=== PATIENT | male | born 1960 | race Caucasian/White ===

== ENCOUNTER 2017-11-01 23:53 | Inpatient (IN) | payer SELFPAY ==
[2017-11-02 02:38] LABS: Troponin I 0.022 ng/mL (< 0.028)
--- NOTE | 2017-11-02 02:52 | PDOC.FPRHP ---
- History of Present Illness Chief Complaint: Syncope History of Present Illness: This is a 57 y/o M with a PMHx of CAD s/p 30 stents and 3v CABG, DM2, who presents to the ED as a transfer from the ED in [place] due to hypoglycemia. The patient reports that he had an episode of syncope this AM and EMS was called and he was found to have a low glucose to 24. He was given an amp of D50 at the time. He then was encouraged by them to eat. Then later that morning he had a second syncopal episode where EMS was called again. They gave him D50 again, but this time took him to the ED. The patient reports that he has had dizziness all day today, which he has never had before. He reports that his blood sugars normally run between 187-300, but since he had an DC in August of this past year he hasn't had as good of an appetite, so he has cut back on the amount of insulin he gives himself, so instead of giving himself 50 units twice a day, he only gives it once a day. The patient reported to me that he only gave himself his insulin once today, however, he informed his nurse that he gave himself the insulin twice today. The patient also reports an episode of chest pain that lasted about 10 minutes and was relieved by nitro. It was in the left side of his chest. The patient reports that he gets episodes of chest pain pretty much every day, and he reports that this was similar, and they have not increased in intensity or changed in any way. He does not have any residual chest pain. 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 ED Course: The patient was seen in the ED in [place] and was given Lasix 40mg, D50 x2 , Aspirin 325mg. - Allergies/Adverse Reactions Allergies Allergy/AdvReac Type Severity Reaction Status Date / Time No Known Drug Allergies Allergy Verified 11/02/17 03:33 - Home Medications Medication Instructions Recorded Confirmed Type Amiodarone [Cordarone] 200 mg PO BID 11/02/17 11/02/17 History Apixaban [Eliquis] 2.5 mg PO DAILY 11/02/17 History Carvedilol Phosphate [Coreg CR] 20 mg PO DAILY 11/02/17 11/02/17 History DULoxetine HCl [Cymbalta] 60 mg PO DAILY 11/02/17 11/02/17 History Digoxin [Digox] 125 mcg PO DAILY 11/02/17 11/02/17 History Fenofibrate Nanocrystallized 145 mg PO DAILY 11/02/17 11/02/17 History [Fenofibrate] Furosemide 40 mg PO DAILY 11/02/17 11/02/17 History Insulin Aspart [NovoLOG] 50 unit SQ BID-WM 11/02/17 11/02/17 History Nitroglycerin [Nitro-Dur 0.6mg/Hr 0.6 mg TD DAILY 11/02/17 11/02/17 History Patch] Nitroglycerin [Nitrostat] 0.4 mg SL Q5MIN PRN 11/02/17 11/02/17 History Prasugrel [Effient] 10 mg PO DAILY 11/02/17 11/02/17 History Sotalol HCl [Sotalol] 80 mg PO DAILY 11/02/17 11/02/17 History Tamsulosin HCl 0.4 mg PO DAILY 11/02/17 11/02/17 History traMADol HCl [Ultram] 50 mg PO DAILY 11/02/17 11/02/17 History - History PMHx: 1. CAD s/p stents x30 and 3v CABG 2. DM2 3. HLD 4. Asthma 5. CHF 6. a-fib s/p cardioversion in 08/2017 PSHx: 1. CABG 2. Cardiac stents 3. Multiple L shoulder surgeries due to staph infection 4. Tonsillectomy FHx: Dad and brother - CAD Social: , denies EtOH, smoking, or drug use. - Review of Systems General: reports: fatigue (worsened fatigue since his DC in August). denies: fever/chills Eyes: denies: vision changes ENT: denies: nasal congestion, rhinorrhea Respiratory: denies: cough, shortness of breath Cardiovascular: reports: chest pain (almost daily chest pain that is relieved with nitro, has not worsened or changed lately). denies: edema Gastrointestinal: denies: nausea, vomiting, diarrhea, constipation, abdominal pain Genitourinary: denies: dysuria, polyuria Skin: denies: rashes, lesions Musculoskeletal: denies: pain, tenderness Neurological: reports: syncope (two episodes of syncope as described in the HPI) . denies: numbness - Vital signs BP: 102/57 HR: 48 RR: 18 Tmax: 98.2 Pox: 94% on RA Wt: 104.3kg - Physical Exam Constitutional: NAD, awake, alert and oriented, well developed HEENT: normocephalic and atraumatic, PERRLA, EOMI, conjunctiva clear, grossly normal vision, normal nasal mucosa, MMM, oropharynx clear Neck: supple, FROM, no LAD -Heart: bradycardic, 3/6 systolic murmur, irregular rhythm, trace pitting edema in bilateral lower extremities Lungs: CTAB, no respiratory distress, good air movement, no rales/rhonchi, no wheezing Abdomen: soft, non-tender, bowel sounds present, no masses/distention Musculoskeletal: normal structure, normal tone Neurological: no focal deficit, CN II-XII intact Skin: good turgor, capillary refill <2 seconds Psychiatric: normal mood and affect, good judgment and insight, intact recent and remote memory FMR H&P: Results - Labs Lab results: Laboratory Tests 11/01/17 11/01/17 11/01/17 20:59 21:18 21:27 WBC Hgb Hct MCV Plt Count Sodium 140 Potassium 4.6 Chloride 102 Carbon Dioxide 24 BUN 58 H Creatinine 1.95 H Estimated GFR (MDRD) 35 Glucose 174 H POC Glucose 94 64 L Troponin I B-Natriuretic Peptide 11/01/17 11/01/17 11/01/17 21:27 21:27 21:27 WBC 9.0 Hgb 10.8 L Hct 34.4 L MCV 93.0 Plt Count 203 Sodium Potassium Chloride Carbon Dioxide BUN Creatinine Estimated GFR (MDRD) Glucose POC Glucose Troponin I 0.040 H B-Natriuretic Peptide 2674.0 H - EKG Interpretation EKG: No P waves, rate of 48, some paced beats, junctional rhythm - Radiology Interpretation Chest x-ray Status: image reviewed by me Additional comment: Official radiology read pending: cardiomegaly, some pulmonary vascular congestion, no acute process FMR H&P: A/P - Problem List (1) Syncope Current Visit: Yes Status: Acute Code(s): R55 - SYNCOPE AND COLLAPSE Qualifiers: Syncope type: unspecified Qualified Code(s): R55 - Syncope and collapse (2) Symptomatic bradycardia Current Visit: Yes Status: Acute Code(s): R00.1 - BRADYCARDIA, UNSPECIFIED (3) Hypoglycemia Current Visit: Yes Status: Acute Code(s): E16.2 - HYPOGLYCEMIA, UNSPECIFIED (4) Stable angina Current Visit: Yes Status: Acute Code(s): I20.8 - OTHER FORMS OF ANGINA PECTORIS (5) JORDON (acute kidney injury) Current Visit: Yes Status: Acute Code(s): N17.9 - ACUTE KIDNEY FAILURE, UNSPECIFIED (6) Normocytic anemia Current Visit: Yes Status: Acute Code(s): D64.9 - ANEMIA, UNSPECIFIED (7) HLD (hyperlipidemia) Current Visit: Yes Status: Acute Code(s): E78.5 - HYPERLIPIDEMIA, UNSPECIFIED Qualifiers: Hyperlipidemia type: unspecified Qualified Code(s): E78.5 - Hyperlipidemia , unspecified (8) Diabetes mellitus type 2 in obese Current Visit: Yes Status: Acute Code(s): E11.69 - TYPE 2 DIABETES MELLITUS WITH OTHER SPECIFIED COMPLICATION; E66.9 - OBESITY, UNSPECIFIED (9) CAD (coronary artery disease) Current Visit: Yes Status: Acute Code(s): I25.10 - ATHSCL HEART DISEASE OF [place] CORONARY ARTERY W/O ANG PCTRS Qualifiers: Coronary Disease-Associated Artery/Lesion type: unspecified vessel or lesion type [place] vs. transplanted heart: jackson heart Associated angina: with stable angina Qualified Code(s): I25.118 - Atherosclerotic heart disease of jackson coronary artery with other forms of angina pectoris (10) Anxiety Current Visit: Yes Status: Acute Code(s): F41.9 - ANXIETY DISORDER, UNSPECIFIED (11) S/P implantation of automatic cardioverter/defibrillator (AICD) Current Visit: Yes Status: Acute Code(s): Z95.810 - PRESENCE OF AUTOMATIC ( IMPLANTABLE) CARDIAC DEFIBRILLATOR - Plan Syncope This was likely 2/2 hypoglycemia vs bradycardia vs combination of both. Patient was found to have glucose of 24 upon first episode of syncope. -Will admit to IMCU Hypoglycemia Likely 2/2 the extra dose of insulin the patient told the nurse he took. -Monitor closely with Accuchecks Q1hr. -Hold home insulin for now, will need to titrate -Hypoglycemia protocol Symptomatic Bradycardia The patient is paced at a rate of 40 per the patient. Could have contributed to dizziness and syncope, or could be patient's baseline. -Will interrogate the pacemaker -Consult cards in the AM -Hold Beta Blockers Stable Angina The patient reports that his chest pain comes on almost every day and is relieved by nitro. He does not feel that it has gotten worse recently. -Aspirin -Atorvastatin -Check FLP, TSH, Mag, Phos -Request records from outside facility Elevated BNP The patient's BNP was elevated to 2674. He is s/p 40mg of lasix at the outside ED. The patient reports severe CHF and reports that his last echo was after he had his DC in August. Unsure of those results. -Request records from outside facility -Lasix for possible mild fluid overload -Fluid restrict JORDON Likely 2/2 bradycardia, but with concern for fluid overload, will hold fluids for now. -Monitor with repeat BMP in the AM Normocytic Anemia -Iron studies -Monitor DM2 -Accuchecks q1h for now, will change to ACHS once stablizes -Hypoglycemia protocol -Optimize home insulin regimen HLD -Continue statin Anxiety -Continue home medication CAD s/p CABG and multiple stents -Continue aspirin and statin Code status: Full VTE PPx: Lovenox Symptomatic meds will be provided Disposition/LOS: Admit to IMCU, length of stay likely 2 days FMR H&P: Upper Level - Plan Date/Time: 11/02/17 2514 Gwen Almanza, PGY3, have evaluated this patient and agree with findings/plan as outlined by human resources intern resident. Pertinent changes/additions are listed here. This is a 57 yo WM w/ extensive PMH CAD w/ CABGx3 s/p stents x30, DM2, HTN, HLD , hx asthma, AICD placement, presents w/ symptomatic hypoglycemia and bradycardia. This morning he felt very weak, and had low heart rate and blood sugar, so he ate an egg sandwich and peanut butter sandwich, but he still felt weak, and then passed out" for possibly 10minutes. EMS was called and he was found to have a BG in the 20's. He was given an amp of D50 and transferred to [place] ER. He was found to have BG 168 but then quickly decreased again to the 90's and therefore was transferred to [facility]. He states that since August, he hasn't eaten as much as previous, and therefore has cut back on his insulin. However, patient is a poor historian, and reported to the nurse that he took an extra dose of insulin today. He also complains of chest pain that was different from his typical chest pain, as it radiated across his chest and lasted about 1-3hrs and relieved w/ nitro, accompanied by SOB. No N/V/F/chills/abdominal pain, weight gain, changes in urination or bowel movement. PE: Gen: AOX4. Appears to be weak and uncomfortable. HEENT: LEONIDES. No PND. No lymphadenopathy Skin: Warm, dry CV: +4'6 systolic murmur. Irregular rate, rhythm. Bradycardic. Resp: Course breath sounds bilaterally Ext: Trace edema LE bilaterally A/P: 1) Symptomatic Hypoglycemia - likely 2/2 too much insulin as patient took an extra dose today. Accuchecks Q1hr. F/u with CXR. We will admit patient to IMCU and consult critical care in the morning. Blood cultures, urine cultures if patient develops fevers, or other signs of infection. 2) Symptomatic Bradycardia - EKG. Cardiac Enzyme. Interogate the pacemaker. Consult cardiology in the morning. Will hold Beta blockers. 3) Syncope - 2/2 #1, #2. Monitor on telemetry. 4) Typical Chest pain - ASA, statin, FLP, TSH, Mag, Phos. Consult cardiology in am. Request records from outside facility. BNP elevated. Unsure of last ECHO results. 5) Normocytic anemia - iron studies. Repeat Hg in am. 6) JORDON - likely 2/2 fluid overload. S/p lasix 40mg x2. F/u with BMP in am. 7) HLD - will increase Lipitor to 80mg QD 8) Chronic Anxiety - Continue home medication. Attending Addendum - Attending Addendum Date/Time: 11/02/17 8624 I personally evaluated the patient and discussed the management with Dr. George and Dr. Rajput on 11/02/17. I agree with the History, Examination, Assessment and Plan documented above with any addition or exceptions noted below. Patient presents with hypoglycemia likely caused by insulin. Will decrease insulin and monitor closely. Patient also with likely CHF exacerbation as well as symptomatic bradycardia. Patient apparently is in a junctional bradycardia at baseline, with pacing as needed for heart rate < 40. Is currently being paced about 9% of the time. Will monitor in IMCU and consider pressors if heart rate consistently drops < 40 or BPs remain low with MAPS < 65. Consult cardiology in the morning, sooner if needed.
[2017-11-02] MEDS ORDERED: Dextrose 5 %-0.45 % NaCl 1,000 ML IV SCH (03:45)
[2017-11-02 03:46] VITALS: BMI 35.6
[2017-11-02] MEDS ORDERED: Dextrose 5% in Water 1,000 ML IV PRN (03:54)
[2017-11-02] MEDS ORDERED: Dextrose 50% Abboject 50 ML SYRINGE SLOW IVP PRN (03:54)
[2017-11-02] MEDS ORDERED: HumaLOG 300 UNITS/3 ML VIAL SC PRN (03:54)
[2017-11-02] MEDS ORDERED: Senokot 8.6 MG TAB PO PRN (03:54)
[2017-11-02] MEDS ORDERED: Ondansetron HCl/PF 4 MG/2 ML Vial IVP PRN (03:54)
[2017-11-02] MEDS ORDERED: Ondansetron ODT 4 MG TAB PO PRN (03:54)
[2017-11-02] MEDS ORDERED: Furosemide 40 MG/4 ML VIAL SLOW IVP SCH (04:30)
[2017-11-02] MEDS ORDERED: Atorvastatin Calcium 40 MG TAB PO SCH (04:30)
[2017-11-02] MEDS: Atorvastatin Calcium 40 MG TAB PO SCH ×2 (04:36→21:41)
[2017-11-02] MEDS: Furosemide 40 MG/4 ML VIAL SLOW IVP SCH ×2 (04:37→10:37)
[2017-11-02 05:20] LABS: Lactic Acid 1.3 mmol/L (0.5-2.2)
[2017-11-02 05:20] LABS: Glucose Accucheck Confirmation 84 mg/dl (70-105); Phosphorus 5.2 mg/dL (2.3-4.7)
[2017-11-02 05:26] LABS: Troponin I 0.023 ng/mL (< 0.028)
[2017-11-02 05:29] LABS: Digoxin 1.79 ng/mL (0.8-2.0)
[2017-11-02] MEDS: Digoxin 0.125 MG TAB PO SCH (06:07)
[2017-11-02 07:26] LABS: Anion Gap 21 mmol/L (10-20); BUN (Urea Nitrogen) 59 mg/dL (8.4-25.7); Calc. Creatinine Clearance 58 mL/min (70-130); Calcium 9.4 mg/dL (7.8-10.44); Carbon Dioxide 17 mmol/L (22-29); Chloride 103 mmol/L (98-107); Estimated GFR-MDRD 33; Glucose 84 mg/dL (70-105); Potassium 4.9 mmol/L (3.5-5.1); Sodium 136 mmol/L (136-145)
[2017-11-02] MEDS ORDERED: Aspirin 325 MG TAB PO SCH (09:00)
--- NOTE | 2017-11-02 09:08 | RAD ---
PORTABLE AP CHEST XRAY: DATE: 11/02/17. HISTORY: The patient is hypoglycemic. Passed out. Blood sugar keeps decreasing. The patient is having const ant dull left-sided chest pain on the night of 11/01/17. COMPARISON: 06/16/17. FINDINGS: Postsurgical changes related to CABG are noted. Coronary artery stents overlie the left aspect of th e cardiac silhouette. A single-lead left subclavian AICD device remains in place. Cardiac silhouett e is magnified by projection but is stable in size compared to the prior study and does appear mildly enlarged. Pulmonary vasculature is also magnified by projection. Lungs are clear. There has been no significant interval change from prior exam. IMPRESSION: Mild cardiomegaly with borderline increase in pulmonary vasculature. POS: CATHERINE
[2017-11-02 10:05] LABS: Troponin I 0.022 ng/mL (< 0.028)
--- NOTE | 2017-11-02 10:34 | CON ---
DATE OF CONSULTATION: 11/02/2017 Consultation encompassed 70 minutes time. Of that time, greater than 50% was spent either directly w ith the patient or in the patient's unit CONSULTING PHYSICIAN: [facility]. REASON FOR CONSULTATION: Hypoglycemia. HISTORY OF PRESENT ILLNESS: Mr. Villela is a pleasant 57-year-old male who was just moved to this a [facility] from the [place] area. He was found to be profoundly hypoglycemic last night. His glucose was a s low as 24. He was having alteration in mental status and dizziness. He was brought into the [facility] for further evaluation. He concurrently reported an episode of chest pain that lasted about 10 m inutes. He says he has a significant cardiac history from the past. This morning he feels better. PAST MEDICAL HISTORY: 1. Coronary artery disease. 2. Diabetes mellitus type 2, requiring insulin. 3. Hyperlipidemia. 4. Asthma. 5. Congestive heart failure with low EF. 6. Atrial fibrillation. PAST SURGICAL HISTORY: 1. AICD/pacemaker placement. 2. Coronary artery bypass grafting surgery. 3. Coronary stents. 4. Multiple left shoulder surgeries. 5. Tonsillectomy. FAMILY MEDICAL HISTORY: Remarkable for coronary disease. SOCIAL HISTORY: Nonsmoker, does not consume alcohol, does not use illicit drugs. He is . He is retired from construction of petrochemical plants. REVIEW OF SYSTEMS: He has had fatigue and tiredness. Otherwise, his 12-point review of systems nega tive. MEDICATIONS PRIOR TO ADMISSION: Eliquis 2.5 mg daily, insulin 50 units NovoLog insulin b.i.d., fenof ibrate 145 mg daily, Cordarone 200 mg b.i.d., tramadol 50 mg daily, Nitrostat 0.4 mg every 5 minutes sublingually as needed, Nitropatch 0.6 mg transdermally daily, tamsulosin 0.4 mg daily, sotalol 80 mg daily, digoxin 125 mcg daily, Cymbalta 60 mg daily, carvedilol 20 mg daily, this is extended release formulation; Effient 10 mg daily, furosemide 40 mg daily. PHYSICAL EXAMINATION: VITAL SIGNS: Temperature 97.6, pulse 42, O2 sat 98%, blood pressure 120/69. GENERAL: He is awake and alert and in no distress. HEENT: Pupils react. Sclerae icteric. Oropharynx clear. NECK: No adenopathy or JVD. CHEST: Pacemaker/defibrillator left upper quadrant. LUNGS: Clear to auscultation. CARDIAC: S1, S2, bradycardic without murmur. ABDOMEN: Soft, nontender, nondistended. EXTREMITIES: No clubbing, cyanosis, or edema. NEUROLOGIC: Grossly intact throughout. SKIN: Shows no bruising, rash or jaundice. LABORATORY DATA: Sodium 136, potassium 4.9, chloride 103, CO2 17, BUN 59, creatinine 2.1, glucose 84 . White blood count 9.0, hematocrit 34.4, platelet count 203. Digoxin level 1.79. Chest x-ray show s cardiomegaly without acute mass, effusion or infiltrate. ASSESSMENT: 1. Hypoglycemia - likely secondary to excessive insulin dosage in the phase of declining renal funct ion. 2. Bradycardia. 3. Diabetes mellitus. 4. Coronary artery disease. RECOMMENDATIONS: 1. Agree with Cardiology consultation. 2. Lower insulin dose significantly. 3. Probably stable for transfer out to telemetry at any time. 4. No acute pulmonary problems identified.
[2017-11-02] MEDS: Famotidine 20 MG TAB PO SCH (10:37)
[2017-11-02] MEDS: Enoxaparin Sodium 40 MG/0.4 ML SYRINGE SC SCH (10:37)
[2017-11-02] MEDS: Aspirin 325 MG TAB PO SCH (10:37)
[2017-11-02] MEDS: DULoxetine 60 MG CAP PO SCH (10:37)
[2017-11-02 11:35] LABS: Hemoglobin A1c 7.5 % (4.0-6.0)
[2017-11-02] MEDS: Nitroglycerin 0.4 MG TAB (25 Tab Bottle) PO PRN ×2 (12:30→12:37)
--- NOTE | 2017-11-02 13:37 | ADD-PRG ---
DATE OF SERVICE: 11/02/2017 Please add this as an addendum to the note of Dr. Josee Fernandes. Mr. Villela is a pleasant 57-year-old white male patient, who was transferred here from [facility]. During the last 24 hours, Mr. Villela has had 2 episodes of profound hypogly cemia, the last level being down to 24. This likely caused his syncopal episodes and he was eventual ly transferred to our facility for further evaluation and treatment. He also has a significant histo ry of coronary artery disease, having had a bypass surgery 10 years ago followed by an HI earlier thi s year. He has had no Cardiology followup since his HI in the winter of this year. He is having nat rly daily chest pain, which does not sound anginal in nature. He also has a cardiac pacemaker with a rate set at 40. This could be contributing to his syncopal episodes, and we will also ask Cardiolog y to evaluate the patient as he is on several beta blockers for his heart failure. In the event this morning, he is clinically stable. He is awake and alert. His vital signs are currently stable with a blood pressure of 127/61. His pulse rate is 51 and shows a paced mechanism, respirations are 20, and he is afebrile. We will also be adjusting his insulin dosages and likely switch him to a basal i nsulin such as Lantus, as he had been taking NovoLog up to 3 times a day, 50 units.
--- NOTE | 2017-11-02 19:44 | CON ---
DATE OF CONSULTATION: 11/02/2017 REASON FOR CONSULTATION: Bradycardia. REFERRING PROVIDER: Dr. Herrmann. HISTORY OF PRESENT ILLNESS: Mr. Villela is a 57-year-old gentleman with an extensive cardiac histor y. He obtains all of his cardiac care in [place]. He continues to be seen and evaluated in [place]. Briefly, Mr. Villela has a history of CAD, status post stent placement. He states he has had "30 st ents" through the years. His last angiogram was performed in August. At that point, he was told th at there was no further intervention that could be performed and would need to be treated medically. He also has a history of ischemic cardiomyopathy with ICD placement. Interrogation ICD today reveal s a VVI with a lower rate limit of 40 beats per minute. Over the last several months, his VVI pacing is increased. He recently was admitted for hypoglycemia. He has no history of syncope, presyncope, or other associated symptoms. He has had intermittent ches t pain x2 while in the hospital. PAST MEDICAL HISTORY: As above including diabetes mellitus, hyperlipidemia, asthma, atrial fibrillat ion. HOME MEDICATIONS: Include Eliquis, NovoLog, fenofibrate, Cordarone, Ultram, Nitrostat, nitro paste, tamsulosin, sotalol, digoxin, carvedilol, prasugrel, and Lasix. PAST SURGICAL HISTORY: AICD, left shoulder surgery, tonsillectomy and as above. SOCIAL HISTORY: No current tobacco or alcohol use. REVIEW OF SYSTEMS: Ten-point review of systems reviewed and as above, otherwise negative. PHYSICAL EXAMINATION: GENERAL: Patient is a pleasant male who is in no acute distress. The patient appears his stated age . VITAL SIGNS: Blood pressure 155/68, pulse 82, temperature 97.9. NEUROLOGIC: The patient is alert and oriented times 3 with no focal neurologic deficits. HEENT: Sclerae without icterus. Mouth has moist mucous membranes with normal pallor. NECK: No JVD. Carotid upstroke brisk. No bruits bilaterally. LUNGS: Clear to auscultation with unlabored respirations. BACK: No scoliosis or kyphosis. CARDIAC: Regular rate and rhythm with normal S1 and S2. No S3 or S4 noted. No significant rubs, murmurs, thrills, or gallops noted throughout the precordium. PMI is not displa blaze. There is no parasternal heave. ABDOMEN: Soft, nontender, nondistended. No peritoneal signs present. No hepatosplenomegaly. No ab normal striae. EXTREMITIES: 2+ femoral and 2+ dorsalis pedis pulses. No cyanosis, clubbing, or edema. SKIN: No gross abnormalities. PERTINENT LABORATORY DATA: Creatinine 2.07, hemoglobin A1c of 7.5. Hemoglobin 10.8. IMPRESSION: 1. Bradycardia. 2. Coronary artery disease. 3. Status post stent placement. 4. Cardiomyopathy. 5. Status post bypass surgery. RECOMMENDATIONS: Mr. Villela's cardiac care is certainly complex. His bradycardia is likely relate d to a beta aislinn therapy and sotalol. 40 beats per minute is at the lower rate set for his VVI pa cer. He does appear to have a somewhat wide complex. He may benefit from biventricular pacing in th is new ICD. We would recommend echo with Doppler. We would also recommend EP consultation with Dr. Louis. We will try and obtain his records from [place]. I do feel given his recent angio, there are no viable options for revascularization.
--- NOTE | 2017-11-02 20:08 | EKG ---
Test Reason : Blood Pressure : / mmHG Vent. Rate : 049 BPM Atrial Rate : 050 BPM P-R Int : 240 ms QRS Dur : 132 ms QT Int : 504 ms P-R-T Axes : -12 095 -64 degrees QTc Int : 455 ms Sinus bradycardia with sinus arrhythmia with 1st degree A-V block Demand pacemaker; interpretation is based on intrinsic rhythm Rightward axis Non-specific intra-ventricular conduction block T wave abnormality, consider inferolateral ischemia Abnormal ECG When compared with ECG of 02-NOV-2017 01:50, (Unconfirmed) Previous ECG has undetermined rhythm, needs review Confirmed by SHAVON NIXON, DR. Mayfield ([id number]) on 11/02/2017 8:08:04 PM Referred By: YEMI Confirmed By:DR. Chaparro SANDS MD
[2017-11-03 04:39] LABS: #Eosinphils 0.2 thou/uL (0.0-0.7); #Lymphocytes 0.6 thou/uL (1.20-3.40); #Monocytes 0.5 thou/uL (0.11-0.59); #Neutrophils 5.6 thou/uL (1.40-6.50); %Basophils 0.5 % (0.0-1.0); %Eosinophils 2.5 % (0.0-10.0); %Lymphocytes 8.8 % (21.0-51.0); %Monocytes 6.7 % (0.0-10.0); %Neutrophils 81.6 % (42.0-75.0); Hemoglobin 11.6 g/dL (14.0-18.0); Mean Corpuscular HGB CONC 31.4 g/dL (32.0-36.0); Mean Corpuscular Hemoglobin 29.9 pg (27.0-31.0); Mean Corpuscular Volume 95.1 fl (80.0-94.0); Mean Platelet Volume 8.5 fL (7.4-10.4); Platelet Count 220 thou/uL (130-400); RBC Distribution Width 16.2 % (11.5-14.5); Red Blood Cell (RBC) Count 3.87 mill/uL (4.70-6.10); White Blood Cell (WBC) Count 6.9 thou/uL (4.8-10.8)
[2017-11-03 05:06] LABS: BUN (Urea Nitrogen) 49 mg/dL (8.4-25.7); Calc. Creatinine Clearance 65 mL/min (70-130); Estimated GFR-MDRD 38; Glucose 150 mg/dL (70-105); HDL Cholesterol 22 mg/dL (>60 Neg Risk)
[2017-11-03 05:08] LABS: Anion Gap 18 mmol/L (10-20); Calcium 9.8 mg/dL (7.8-10.44); Carbon Dioxide 22 mmol/L (22-29); Chloride 101 mmol/L (98-107); Cholesterol 143 mg/dl (< 200 Desired); Potassium 4.6 mmol/L (3.5-5.1); Sodium 136 mmol/L (136-145); Triglycerides 188 mg/dL (Less than 150)
[2017-11-03 05:14] LABS: Cardiac Risk 7.5 (Less than 4.5); LDL Cholesterol, Calculated 85 mg/dL
--- NOTE | 2017-11-03 06:39 | PDOC.FM ---
- Subjective Subjective: Patient is feeling much better today. He was seen by cardiology who recommended replacing AICD with biventricular pacer. Patient is hesitant on doing this during this hospitaliztion and would possibly prefer to do it outpatient with established Associate Professor Of Anthropology in [place]. Patient denies CP this morning although did have two episodes of CP yesterday relieved with Nitro. Patient denies abdominal pain, hematochezia and melena. Patient states he is uninsured and has difficulty getting meds. Records received from Associate [employer] Of [employer], no mention of recent catheterization, recent echo, or Sotalol prescription. - Objective MAR Reviewed: Yes Vital Signs & Weight: Vital Signs (12 hours) Temp Pulse Resp BP Pulse Ox 11/03/17 05:25 93 L 11/03/17 04:00 98.2 F 54 L 14 166/71 H 93 L 11/03/17 00:00 98.4 F 57 L 18 169/80 H 96 11/02/17 20:00 98.1 F 55 L 20 154/76 H 96 Weight Weight 100.743 kg I&O: 11/01/17 11/02/17 11/03/17 06:59 06:59 06:59 Intake Total 45 275 Output Total 225 3455 Balance -180 -3180 Result Diagrams: 11/03/17 04:10 11/03/17 04:10 Phys Exam - Physical Examination Constitutional: NAD HEENT: moist MMs, sclera anicteric Respiratory: no wheezing, no rales, clear to auscultation bilateral bradycardic, mild systolic murmur Gastrointestinal: soft, non-tender, no distention, positive bowel sounds Musculoskeletal: no edema, pulses present Neurological: non-focal, normal sensation, moves all 4 limbs Psychiatric: A&O x 3 Skin: cap refill <2 seconds Dx/Plan (1) Hypoglycemia Code(s): E16.2 - HYPOGLYCEMIA, UNSPECIFIED Status: Resolved (2) Symptomatic bradycardia Code(s): R00.1 - BRADYCARDIA, UNSPECIFIED Status: Acute (3) JORDON (acute kidney injury) Code(s): N17.9 - ACUTE KIDNEY FAILURE, UNSPECIFIED Status: Acute (4) CAD (coronary artery disease) Code(s): I25.10 - ATHSCL HEART DISEASE OF [place] CORONARY ARTERY W/O ANG PCTRS Status: Acute Qualifiers: Coronary Disease-Associated Artery/Lesion type: unspecified vessel or lesion type [place] vs. transplanted heart: [place] heart Associated angina: with stable angina Qualified Code(s): I25.118 - Atherosclerotic heart disease of [place] coronary artery with other forms of angina pectoris (5) Anxiety Code(s): F41.9 - ANXIETY DISORDER, UNSPECIFIED Status: Acute (6) Diabetes mellitus type 2 in obese Code(s): E11.69 - TYPE 2 DIABETES MELLITUS WITH OTHER SPECIFIED COMPLICATION; E66.9 - OBESITY, UNSPECIFIED Status: Acute (7) HLD (hyperlipidemia) Code(s): E78.5 - HYPERLIPIDEMIA, UNSPECIFIED Status: Acute Qualifiers: Hyperlipidemia type: unspecified Qualified Code(s): E78.5 - Hyperlipidemia , unspecified (8) Normocytic anemia Code(s): D64.9 - ANEMIA, UNSPECIFIED Status: Acute (9) S/P implantation of automatic cardioverter/defibrillator (AICD) Code(s): Z95.810 - PRESENCE OF AUTOMATIC (IMPLANTABLE) CARDIAC DEFIBRILLATOR Status: Acute (10) Stable angina Code(s): I20.8 - OTHER FORMS OF ANGINA PECTORIS Status: Acute (11) Syncope Code(s): R55 - SYNCOPE AND COLLAPSE Status: Resolved Qualifiers: Syncope type: unspecified Qualified Code(s): R55 - Syncope and collapse - Plan Plan: Syncope 2/2 Hypoglycemia - reports at home on Novolog 50units TID, records from backend developer in 07/2017 show him on Metformin only - blood sugars have been 70's-80's fasting, after giving him a diet, sugars have increased to 140's-170's - plan to start long acting insulin vs. GLP1, not a candidate for metformin with renal function - A1c 7.5 Bradycardia s/p AICD placement - patient reports dizziness upon sitting or standing - bradycardia likely 2/2 sotalol use, which he is not prescribed according to backend developer records. Med rec with pharmacy to confirm. - Cards consulted, appreciate recs, apparent transition to 2 lead AICD today per Sharan note if patient amenable - Currently rate of 50's - consult EP Hx of Paroxysmal Afib - no sign of Afib during this hospitalization - Continue antiplatelet therapy, patient normally on double antiplatelet therapy at home, hold Effient for now - Patient initially on Sotalol, Coreg, and Amiodarone - hold BB and amio for procedure, appreciate recs on restarting Coreg and amio. Elevated BNP with known CHF - no signs of fluid overload at this time - per records, patient has EF of less than 35% - echo study pending - continue home dose of Lasix 40mg PO daily - Digoxin not on recent medication list as well. Med rec with pharmacy to confirm. CAD s/p CABG and multiple stents - continue ASA 325mg and Lipitor. Patient not currently taking Lipitor at home due to myalgias. Will lower dose to decrease side effects. - patient not a candidate for revascularization per cardiology, will continue with medically optimized treatment Stable Angina - Nitro prn JORDON - improving - BUN:Cr - 27 indicating likely prerenal cause, most likely dehydration - Given two doses of IV Lasix yesterday. Will hold this morning PO lasix and hydrate. Normocytic Anemia - FOBT pending - Fe studies suggest Fe deficiency picture although Ferritin was unusually elevated for that case, repeat Ferritin tomorrow HTN - currently hypertensive - prn Hydralazine - holding home BB for now - per record review, patient to be on Entresto 24mg-26mg BID. Med rec with pharmacy. Patient does not recall if this is a medication he takes. HLD - continue Lipitor T2DM - adjusting medications as above. - required no units of SSI since admission. - Will need close follow up for medication management going home Anxiety - home duloxetine Uninsured - consult CM for help with medication.
[2017-11-03] MEDS: Digoxin 0.125 MG TAB PO SCH (08:18)
[2017-11-03] MEDS: Aspirin 325 MG TAB PO SCH (08:26)
[2017-11-03] MEDS: Fenofibrate Nanocrystallized 145 MG TAB PO SCH (08:26)
[2017-11-03] MEDS: Famotidine 20 MG TAB PO SCH (08:26)
[2017-11-03] MEDS: Furosemide 40 MG TAB PO SCH (08:26)
[2017-11-03] MEDS: Enoxaparin Sodium 40 MG/0.4 ML SYRINGE SC SCH (08:27)
[2017-11-03] MEDS: DULoxetine 60 MG CAP PO SCH (08:27)
--- NOTE | 2017-11-03 10:36 | PRG ---
DATE OF SERVICE: 11/03/2017 SUBJECTIVE: He feels better today. His blood sugar came up yesterday. No complaints. OBJECTIVE: VITAL SIGNS: On exam, temperature 98.5, pulse 54, respirations 17, O2 sat 94%, blood pressure 106/68. HEENT: Unremarkable. NECK: No JVD. CARDIAC: S1 and S2, regular. LUNGS: Clear. ABDOMEN: Soft, obese. EXTREMITIES: No edema. LABORATORY DATA: Sodium 136, potassium 4.6, chloride 101, CO2 of 22, BUN 49, creatinine 1.8, glucose 150. White blood cell count 6.9, hematocrit 36.8, platelet count 220. ASSESSMENT: 1. Hypoglycemia secondary to excessive insulin dosage. 2. Bradycardia, which has improved with adjustment of cardiac medications. 3. Diabetes mellitus. 4. Coronary artery disease. PLAN: Main issues now are cardiac in nature. His medications will need adjustment. The patient sta jamil that he prefers that his doctor in [place] adjusts these dosages. I have no further pulmonary re commendations. I would suggest we transfer the patient out to telemetry. I will sign off. Please brian shannon if further assistance needed.
[2017-11-03] MEDS ORDERED: Insulin NPH/Reg Insulin Hm 300 UNITS/3 ML VIAL SC SCH ×2 (11:00→21:00)
[2017-11-03] MEDS ORDERED: hydrALAZINE 20 MG/ML VIAL SLOW IVP PRN (12:04)
--- NOTE | 2017-11-03 12:45 | ADD-PRG ---
DATE OF SERVICE: 11/03/2017 This is an addendum to the note of Dr. Josee Fernandes. Mr. Villela is lying in bed comfortably. He is in no distress. He is pleasant, awake, alert. Bloo d pressure is 158/75, respirations are 12, pulse rate is 57 and regular. He is afebrile. This morning's labs show a sodium 136, potassium is 4.6, chloride 101, bicarbonate 22, BUN 49, creati nine 1.85 and his glucose is 150. He has been seen in consultation by the Cardiology Service. Mr. Brian bowling has expressed a desire to see his ginning operator in [place]. As soon as we get clearance and a djustment of medications per Cardiology, we will discharge the patient to see his ginning operator in [facility]. Clinically, he is quite stable. He has had no further episodes of hypoglycemia. We have also instructed him to seek followup very soon regarding his type 2 diabetes as he will also need medicat ion adjustment in that regard as well.
[2017-11-03] MEDS: Atorvastatin Calcium 40 MG TAB PO SCH (20:36)
[2017-11-03] MEDS ORDERED: Insulin Detemir 100 UNITS/ML 10 UNITS in Pre-Filled Syringe 1 EACH SC SCH (21:00)
[2017-11-04 04:37] LABS: Anion Gap 11 mmol/L (10-20); BUN (Urea Nitrogen) 41 mg/dL (8.4-25.7); Calc. Creatinine Clearance 74 mL/min (70-130); Calcium 9.8 mg/dL (7.8-10.44); Carbon Dioxide 30 mmol/L (22-29); Chloride 104 mmol/L (98-107); Estimated GFR-MDRD 46; Glucose 70 mg/dL (70-105); Sodium 141 mmol/L (136-145)
--- NOTE | 2017-11-04 06:01 | PDOC.FM ---
- Subjective Subjective: Patient is doing well this morning. Reports some mild nausea. Patient denies recent illness. No CP at this time. Overnight, nightime insulin was held due to low blood sugar and again this morning continues to be low. - Objective MAR Reviewed: Yes Vital Signs & Weight: Vital Signs (12 hours) Temp Pulse Resp BP Pulse Ox 11/04/17 04:02 98.5 F 55 L 17 147/76 H 96 11/04/17 00:21 96.6 F L 56 L 18 137/80 94 L 11/03/17 20:00 97.3 F L 61 17 99 11/03/17 19:37 97.3 F L 61 17 142/70 H 99 Weight Weight 98.203 kg I&O: 11/02/17 11/03/17 11/04/17 06:59 06:59 06:59 Intake Total 45 275 960 Output Total 225 3455 600 Balance -180 -3180 360 Result Diagrams: 11/03/17 04:10 11/04/17 03:49 Phys Exam - Physical Examination Constitutional: NAD HEENT: moist MMs Neck: no nodes Respiratory: no wheezing, no rales, clear to auscultation bilateral Cardiovascular: no significant murmur bradycardic Gastrointestinal: soft, non-tender Musculoskeletal: no edema L great toe with mild eryethema, no osler nodes, splinter hemmorhages, or petichiae Neurological: non-focal, moves all 4 limbs Psychiatric: normal affect, A&O x 3 Dx/Plan (1) Hypoglycemia Code(s): E16.2 - HYPOGLYCEMIA, UNSPECIFIED Status: Resolved (2) Symptomatic bradycardia Code(s): R00.1 - BRADYCARDIA, UNSPECIFIED Status: Acute (3) JORDON (acute kidney injury) Code(s): N17.9 - ACUTE KIDNEY FAILURE, UNSPECIFIED Status: Acute (4) CAD (coronary artery disease) Code(s): I25.10 - ATHSCL HEART DISEASE OF [place] CORONARY ARTERY W/O ANG PCTRS Status: Acute Qualifiers: Coronary Disease-Associated Artery/Lesion type: unspecified vessel or lesion type [place] vs. transplanted heart: [place] heart Associated angina: with stable angina Qualified Code(s): I25.118 - Atherosclerotic heart disease of [place] coronary artery with other forms of angina pectoris (5) Anxiety Code(s): F41.9 - ANXIETY DISORDER, UNSPECIFIED Status: Acute (6) Diabetes mellitus type 2 in obese Code(s): E11.69 - TYPE 2 DIABETES MELLIT[place] WITH OTHER SPECIFIED COMPLICATION; E66.9 - OBESITY, UNSPECIFIED Status: Acute (7) HLD (hyperlipidemia) Code(s): E78.5 - HYPERLIPIDEMIA, UNSPECIFIED Status: Acute Qualifiers: Hyperlipidemia type: unspecified Qualified Code(s): E78.5 - Hyperlipidemia , unspecified (8) Normocytic anemia Code(s): D64.9 - ANEMIA, UNSPECIFIED Status: Acute (9) S/P implantation of automatic cardioverter/defibrillator (AICD) Code(s): Z95.810 - PRESENCE OF AUTOMATIC (IMPLANTABLE) CARDIAC DEFIBRILLATOR Status: Acute (10) Stable angina Code(s): I20.8 - OTHER FORMS OF ANGINA PECTORIS Status: Acute (11) Syncope Code(s): R55 - SYNCOPE AND COLLAPSE Status: Resolved Qualifiers: Syncope type: unspecified Qualified Code(s): R55 - Syncope and collapse - Plan Plan: Possible Vegetation on Echo - this is a new finding and will need to be further evalutated with NATHALIA - will touch base with wharf helper to discuss NATHALIA here or in [place] with patients wharf helper. Bradycardia s/p AICD placement - patient reports dizziness upon sitting or standing - bradycardia likely 2/2 sotalol use. discontinue sotalol. - Cards consulted, appreciate recs, recommended 2 lead AICD, patient would like to have it done with his Dual Rate Supervisor in [place] - Currently rate of 50's Hx of Paroxysmal Afib - no sign of Afib during this hospitalization - Continue antiplatelet therapy with ASA and Effient - Continue Coreg. - D/c Amio and Sotalol Elevated BNP with known CHF - no signs of fluid overload at this time - echo shows EF 10-15% - continue home dose of Lasix 40mg PO daily - Continue Digoxin CAD s/p CABG and multiple stents - continue ASA 325mg and Fenofibrate. Patient refuses statin due to hx of myalgias. Discussed risks. - patient not a candidate for revascularization per cardiology, will continue with medically optimized treatment Stable Angina - Nitro prn JORDON - improving - BUN:Cr - 27 indicating likely prerenal cause, most likely dehydration - PO hydrate Normocytic Anemia - FOBT pending - Fe studies suggest Fe deficiency picture although Ferritin was unusually elevated for that case, repeat Ferritin today HTN - prn Hydralazine - Continue Coreg. HLD - continue Fenofibrate T2DM - started 70/30 insulin yesterday with 30units AM and 10 units PM. - required 4 units SSI yesterday and nighttime 70/30 was refused by patient due to low sugar. - This am continues to be low. Will hold morning insulin. - change 70/30 insulin dosing to once daily 20 units AM going home with follow up with Plant Mechanic or PCP for reevaluation. Anxiety - home duloxetine Uninsured - consult CM for help with medication. Syncope 2/2 Hypoglycemia, resolved - continue to monitor with accuchecks.
[2017-11-04] MEDS: Digoxin 0.125 MG TAB PO SCH (07:56)
[2017-11-04] MEDS ORDERED: Carvedilol 3.125 MG TAB PO SCH (08:00)
[2017-11-04] MEDS: Fenofibrate Nanocrystallized 145 MG TAB PO SCH (08:21)
[2017-11-04] MEDS: DULoxetine 60 MG CAP PO SCH (08:21)
[2017-11-04] MEDS: Aspirin 325 MG TAB PO SCH (08:21)
[2017-11-04] MEDS: Famotidine 20 MG TAB PO SCH (08:21)
[2017-11-04] MEDS: Furosemide 40 MG TAB PO SCH (08:21)
[2017-11-04] MEDS: Enoxaparin Sodium 40 MG/0.4 ML SYRINGE SC SCH (08:21)
[2017-11-04] MEDS ORDERED: Insulin NPH/Reg Insulin Hm 300 UNITS/3 ML VIAL SC SCH (09:00)
--- NOTE | 2017-11-04 09:38 | PRG ---
DATE OF SERVICE: 11/03/2017 SUBJECTIVE: Mr. Villela is doing better. Shortness of breath is near baseline. He has not had any further episodes of tachycardia. No further episodes of chest pain. PHYSICAL EXAMINATION: VITAL SIGNS: Blood pressure 157/83, pulse 62, and temperature 97.6. LUNGS: Clear to auscultation. CARDIAC: Regular rate and rhythm. ABDOMEN: Soft, nontender, nondistended. EXTREMITIES: No edema. IMPRESSION: 1. Bradycardia. 2. Coronary artery disease. 3. Acute on chronic systolic heart failure. 4. Severe underlying coronary disease. RECOMMENDATIONS: We would continue current medical therapy as prescribed. I did recommend to discuss upgrade to a biventricular pacemaker. At this point, he is not interested. He would like to follow up with his primary parcel post weigher in [place]. His heart rate continues to improve, may consid er adding back low dose Coreg. Otherwise, I have no recommendations. Recommend follow up with his [facility] parcel post weigher.
[2017-11-04 11:10] VITALS: BP 165/76; TEMP 98.2
--- NOTE | 2017-11-04 11:38 | PRG ---
DATE OF SERVICE: 11/04/2017 Mr. Villela is awake, alert, in no distress. His TTE shows a possible aortic vegetation. We are co nsulting Cardiology again to advise about the feasibility of doing a transesophageal echocardiogram t o further delineate this problem. In the event, otherwise once clarified the patient is ready for oswaldo chun to follow up with his [place] test borer.
[2017-11-05] MEDS ORDERED: Insulin NPH/Reg Insulin Hm 300 UNITS/3 ML VIAL SC SCH (09:00)
--- NOTE | 2017-11-05 15:39 | DIS-2 ---
DATE OF ADMISSION: 11/02/2017 DATE OF DISCHARGE: 11/04/2017 ADMITTING ATTENDING: Jennifer Strauss DO. DISCHARGE ATTENDING: Hemal Herrmann M.D. RESIDENT: Josee Fernandes DO. CONSULTS: 1. Abraham Tsang M.D., Cardiology. 2. Ryan Chinchilla M.D., Pulmonology. INPATIENT PROCEDURES/OPERATIONS: 1. Echocardiogram with EF 10-15% and evidence of diastolic dysfunction. Also noted aortic valve lexus flets are thickened with a thin fibrinous string attached, possibly vegetation. Also noted a pacer w kenney visualized in the right ventricle. 2. Chest x-ray shows mild cardiomegaly with borderline increase in pulmonary vasculature. 3. Electrocardiogram shows sinus bradycardia with first-degree AV block and demand pacemaker with so me T-wave abnormality, rate of 49 beats per minute. PRIMARY DIAGNOSES: 1. Severe hypoglycemia, resolved. 2. Syncope secondary to likely hypoglycemia versus sinus bradycardia. 3. Possible vegetation on echo. 4. Elevated BNP with known congestive heart failure. 5. History of paroxysmal atrial fibrillation. 6. Stable angina. 7. Acute kidney injury. 8. Normocytic anemia. 9. Hypertension. 10. Hyperlipidemia. 11. Type 2 diabetes. 12. Anxiety. 13. Uninsured status. DISCHARGE MEDICATIONS: 1. Apixaban (Eliquis) 2.5 mg p.o. daily. 2. Fenofibrate 145 mg p.o. daily. 3. Tramadol 50 mg p.o. daily. 4. Nitroglycerin 0.4 mg sublingual every 5 minutes p.r.n. 5. Tamsulosin 0.4 mg p.o. daily. 6. Cymbalta 60 mg p.o. daily. 7. Prasugrel 10 mg p.o. daily. 8. Furosemide 40 mg p.o. daily. 9. Humulin 70/30 20 units subcutaneously q.a.m. 10. Digoxin 0.125 mg p.o. daily. 11. Coreg 3.125 mg p.o. b.i.d. 12. Atorvastatin 80 mg p.o. at bedtime. 13. Aspirin 325 mg p.o. daily. DISCONTINUED MEDICATIONS: 1. Amiodarone 200 mg p.o. b.i.d. 2. Carvedilol 20 mg p.o. daily. 3. Digoxin 125 mcg p.o. daily. 4. Sotalol 80 mg p.o. daily. 5. NovoLog 50 units subcutaneously b.i.d. HISTORY OF PRESENT ILLNESS AND HOSPITAL COURSE: Patient is a 57-year-old male with past medical hist ory of CAD, status post about 30 stents and the 3-vessel CABG as well as type 2 diabetes, who present ed to [place] ED due to hypoglycemia. EMS found the patient with a blood glucose at 24. He was given amp of D50 at that time and then encouraged to eat. Later that morning, he again had a second syncopal episode where EMS was called and again found lower blood sugar into the 19. The patient wa s brought to the ED status post D50 x2 and 40 mg of Lasix as well as aspirin. The patient also repor shanika an episode of chest pain that morning that was relieved with nitro. He has chronic unstable evi na, but has been deemed not a candidate for any more surgical measures and this was also confirmed by a referral during his hospital stay with Dr. Tsang. His take out waiter/waitress is in [place], has been on a regimen of nitroglycerin and several other heart medications that controlled his angina. On admis julee, the patient was also found to be bradycardic into the 50s. He was admitted to the IMCU and his hypoglycemia was slowly corrected just with withholding insulin. We did change patient's regimen. He was on a regimen of Humalog 50 units twice daily and had been titrating himself at home. We switc hed his insulin to Humulin 70/30 20 units in the morning and that seems to give a better control. In regard to his bradycardia, patient does have a pacemaker in place. Cardiology was consulted. The pacemaker was interrogated and beta-blockers were held, likely the contributor is a double beta-bloc ker therapy with sotalol and high-dose Coreg. Dr. Tsang has recommended switching out pacemaker for a biventricular pacer and electrophysiology consultation; however, the patient did not want this done in our hospital and would prefer to be treated by his own take out waiter/waitress in [place]. Again, Dr. Jovanna montes did report no viable options for revascularization at this time in regards to his angina. A n echo was performed, which confirmed a diastolic and systolic heart failure with an ejection fractio n of 10-15% and possible vegetation on aortic valve. This was discussed with Cardiology who reviewed the report and had a long discussion with the patient. The patient is to get a NATHALIA after discharge with his primary take out waiter/waitress in [place]. Cardiology team felt safe to discharge thinking possibly t his could be a more chronic vegetation. The patient was also found to have an elevated BNP of 2674. He takes 40 mg of Lasix daily and receiv ed an extra dose in the ED prior to arrival. Patient did not have any signs of exacerbation at this time and home medication was restarted. The patient was found to be mildly anemic with a hemoglobin of 11.6 and MCV of 95.1. Iron studies we re performed and suggested iron deficiency picture, although ferritin is unusually high. Ferritin wa s repeated and continually high. This could be due to an acute phase reactant. FOBT was ordered, bu t patient did not have a bowel movement during his hospital stay. Patient will need to follow up out patient with FOBT to further evaluate cause of anemia. In regard to the patient's other chronic medical conditions, home medications were started. The khalif ent was placed on a high intensity statin, although reports not being able to tolerate this previousl y. Therefore, it is unsure if he will actually take it, but just continued fenofibrate for hyperlipi demia. For his hypertension, patient was only mildly hypertensive during his stay. We switched his dose of Coreg and it remained stable. Patient did have a mild JORDON that was improving, likely seconda ry to dehydration with an extra dose of Lasix. Despite elevated BNP, the patient clinically seemed a little dry. Angina was treated with nitro p.r.n. The patient did have several episodes of anginal p ain that resolved with some nitro. Patient is uninsured and case management was consulted for help w ith medications. Medications that we chose were the low cost including new insulin regimen. Overall, patient stabilized with initial syncopal episode, but does have several things that need to be followed up including most importantly NATHALIA for possible vegetation and an echocardiogram as well a s biventricular pacemaker recommended by Dr. Tsang, Cardiology. Patient also needs a FOBT in [facility] post-discharge. DISPOSITION: Stable. DISCHARGE INSTRUCTIONS: 1. Location: Home. 2. Diet: Diabetic diet, heart healthy, low sodium. 3. Activity: As tolerated. 4. Follow up: With primary take out waiter/waitress in [place] and Dr. Thompson, PCP within 1 week.
== END 2017-11-04 16:33 | disposition home or self-care (01) | DRG 637 ==
LOC: ERS 23:53 → IMCU/EMU 11-02 01:00
PROVIDERS: ADMIT Family Medicine; ATTEND Family Medicine
DX: E11.649 Type 2 diabetes mellitus with hypoglycemia without coma (principal); I33.0 Acute and subacute infective endocarditis; I50.43 Acute on chronic combined systolic (congestive) and diastolic (congestive) heart failure; N17.9 Acute kidney failure, unspecified; E86.0 Dehydration; I48.0 Paroxysmal atrial fibrillation; I25.110 Atherosclerotic heart disease of native coronary artery with unstable angina pectoris; D50.9 Iron deficiency anemia, unspecified; R00.1 Bradycardia, unspecified; Z95.1 Presence of aortocoronary bypass graft; I25.2 Old myocardial infarction; Z95.0 Presence of cardiac pacemaker; Z95.5 Presence of coronary angioplasty implant and graft; I25.5 Ischemic cardiomyopathy; E78.5 Hyperlipidemia, unspecified; J45.909 Unspecified asthma, uncomplicated; Z79.01 Long term (current) use of anticoagulants; Z79.4 Long term (current) use of insulin; T38.3X5A Adverse effect of insulin and oral hypoglycemic [antidiabetic] drugs, initial encounter; F41.9 Anxiety disorder, unspecified; I11.0 Hypertensive heart disease with heart failure
CPT/HCPCS: 36415; 36416; 71045; 80048; 80061; 80162; 82728; 83036; 83540; 83550; 83605; 83735; 84100; 84443; 84484; 85025; 93005; 93010; 93306; 94760